=== PATIENT | female | born 1950 | race Caucasian/White ===

== ENCOUNTER 2017-02-06 21:54 | Emergency (ER) | payer MEDICARE ==
[2017-02-06 22:02] VITALS: BP 136/68; PULSE 53; RESP 16; TEMP 97.2
[2017-02-06] MEDS ORDERED: IBUPROFEN 800 MG TAB PO STA (22:03)
--- NOTE | 2017-02-06 22:06 | ED ---
Fall HPI - General Chief Complaint: Fall Stated Complaint: Fall Time Seen by Provider: 02/06/17 21:55 Source: patient, EMS, RN notes reviewed Mode of arrival: EMS - History of Present Illness Initial Comments: This is a 66-year-old female who states she slipped and tripped falling against a car hitting her left shoulder. Complains of left shoulder pain. No head neck or back pain. Pain is 89/10 in severity. She denies any lower extremity injuries. She denies any loss of consciousness or other complaints at this time. MD Complaint: fall - Related Data Allergies Allergy/AdvReac Type Severity Reaction Status Date / Time No Known Allergies Allergy Verified 02/06/17 22:46 Review of Systems ROS Statement: Those systems with pertinent positive or pertinent negative responses have been documented in the HPI. ROS Other: All systems not noted in ROS Statement are negative. Past Medical History Past Medical History: No Reported History History of Any Multi-Drug Resistant Organisms: None Reported Past Surgical History: No Surgical Hx Reported Past Psychological History: No Psychological Hx Reported Smoking Status: Never smoker Past Alcohol Use History: None Reported Past Drug Use History: None Reported General Exam - General Exam Comments Initial Comments: This is a well-developed well-nourished awake alert oriented history female she does demonstrate a Stryker Coma Scale of 15. Limitations: no limitations General appearance: alert, in no apparent distress Head exam: Present: atraumatic, normocephalic, normal inspection Eye exam: Present: normal appearance, PERRL, EOMI. Absent: scleral icterus, conjunctival injection, periorbital swelling ENT exam: Present: normal exam, mucous membranes moist Neck exam: Present: normal inspection. Absent: tenderness, meningismus, lymphadenopathy Respiratory exam: Present: normal lung sounds bilaterally. Absent: respiratory distress, wheezes, rales, rhonchi, stridor Cardiovascular Exam: Present: regular rate, normal rhythm, normal heart sounds. Absent: systolic murmur, diastolic murmur, rubs, gallop, clicks Extremities exam: Present: tenderness, normal capillary refill, other (Tennis palpation of the left shoulder no definite subluxation or step-off is tenderness of the proximal humerus some slight before meals joint tenderness. No scapular tenderness no tenderness below the mid humerus left elbow forearm wrist or hand.). Absent: full ROM Back exam: Present: normal inspection Neurological exam: Present: alert, oriented X3, CN II-XII intact Psychiatric exam: Present: normal affect Skin exam: Present: warm, dry, intact, normal color. Absent: rash Course Vital Signs 02/06/17 21:55 Temperature 97.2 F L Pulse Rate 53 L Respiratory 16 Rate Blood Pressure 136/68 O2 Sat by Pulse 97 Oximetry Medical Decision Making - Medical Decision Making I did discuss findings with the patient and with Dr. Jose was on-call for orthopedics. Patient be discharged sling structure ice she has pain medication at home and does not feel she is any other pain medication at this time she is a follow-up with the office tomorrow morning. She does have a good neurovascular exam. - Radiology Data Radiology results: report reviewed (I did review the imaging and report there is evidence of a displaced fracture the proximal humerus.), image reviewed Disposition Clinical Impression: Fall, Fracture of proximal end of left humerus Disposition: HOME SELF-CARE Condition: Good Instructions: Proximal Humerus Fracture (ED) Additional Instructions: Okay to use her home pain medication, ice as needed to the affected area follow- up in the morning with Dr. Jose. Referrals: Sahara Mojica MD [Primary Care Provider] - 1-2 days Yossi Jose DO [Doctor of Osteopathic Medicine] - 1-2 days
--- NOTE | 2017-02-06 22:39 | XR ---
ADDENDUM - Added by Hussain Erickson M.D. on 02/06/2017 10:41 PM (-07:00) Associated soft tissue swelling. EXAM: XR Left Shoulder Complete, 3 Views CLINICAL HISTORY: Reason: Pain TECHNIQUE: Three views of the left shoulder. COMPARISON: No relevant prior studies available. FINDINGS: Bones/joints: Comminuted left humeral neck fracture with fracture of the greater tuberosity. Medial and minimal anterior displacement. Soft tissues: Unremarkable. IMPRESSION: Comminuted left humeral neck fracture with fracture of the greater tuberosity. Medial and minimal anterior displacement.
--- NOTE | 2017-02-06 22:40 | XR ---
EXAM: XR Left Humerus, 2 or More Views CLINICAL HISTORY: Reason: Pain TECHNIQUE: Frontal and lateral views of the left humerus. COMPARISON: No relevant prior studies available. FINDINGS: Bones/joints: Comminuted left humeral neck fracture with fracture of the greater tuberosity. Medial and minimal anterior displacement. Soft tissues: Associated soft tissue swelling. IMPRESSION: Comminuted left humeral neck fracture with fracture of the greater tuberosity. Medial and minimal anterior displacement.
== END 2017-02-06 23:22 | disposition home or self-care (01) ==
LOC: EC 21:54
DX: S42.202A Unspecified fracture of upper end of left humerus, initial encounter for closed fracture (principal); W01.198A Fall on same level from slipping, tripping and stumbling with subsequent striking against other object, initial encounter; Y92.009 Unspecified place in unspecified non-institutional (private) residence as the place of occurrence of the external cause
CPT/HCPCS: 99284

== ENCOUNTER → 2017-07-09 | Outpatient (CLI) | payer MEDICARE ==
--- NOTE | 2017-07-09 13:32 | BD ---
EXAMINATION TYPE: MG DEXA axial skeleton. DATE OF EXAM: 07/09/2017 COMPARISON: 08/09/2010 CLINICAL HISTORY: 66-year-old female postmenopausal screening Height: 64 IN Weight: 215 LBS FRAX RISK QUESTIONS: Alcohol (3 or more units per day): NO Family History (Parent hip fracture): NO Glucocorticoids (More than 3mos): NO (Ex: prednisone, prednisolone, methylprednisolone, dexamethasone, and hydrocortisone). History of Fracture in Adulthood: YES LT HUMERUS FX Secondary Osteoporosis: 1. Type 1 Diabetes: NO 2. Hyperthyroidism: NO 3. Menopause before 45: NO 4. Malnutrition: NO 5. Chronic liver disease: NO Rheumatoid Arthritis: YES Current Tobacco Use: NO RISK FACTORS HISTORY OF: History of Wrist Fracture: YES RT When: AGE 2 Active: YES Postmenopausal woman: AGE 48 MEDICATIONS: Additional Medications: CALCIUM, VIT D, LISINOPRIL, GLUCOTROL, METFORMIN, LEXAPRO,BABY ASPIRIN, EXAM MEASUREMENTS: Bone mineral densitometry was performed using the Hublished System. Bone mineral density as measured about the Lumbar spine is: ----- L1-L4(G/cm2): 1.378 T Score Values are as follows: ----- L2: 1.9 ----- L3: 2.6 ----- L4: 1.5 ----- L1-L4: 1.6 Bone mineral density has: Increased 4.1% since study of: 08/09/2010 Bone mineral density about the R hip (g/cm2): 1.084 Bone mineral density about the L hip (g/cm2): 1.028 T Score values are as follows: -----R Neck: 0.3 -----L Neck: -0.1 -----R Total: 1.3 -----L Total: 0.5 Bone mineral density has: Decreased -2.3% since study of: 08/09/2010 IMPRESSION: Normal (Values between +1 and -1 indicate normal bone mass). Consider repeating this study in 5 year s or sooner if there is some new clinical indication. NOTE: T-SCORE=SD OF THE YOUNG ADULT MEAN.
== END | disposition home or self-care (01) ==
LOC: RADBDWWP 09:46
PROVIDERS: ATTEND Internal Medicine
DX: N95.1 Menopausal and female climacteric states (principal)
CPT/HCPCS: 77080

== ENCOUNTER → 2018-09-03 | Outpatient (CLI) | payer MEDICARE ==
--- NOTE | 2018-09-03 13:42 | XR ---
EXAMINATION TYPE: XR chest 2V DATE OF EXAM: 09/03/2018 COMPARISON: NONE TECHNIQUE: PA and lateral views submitted. HISTORY: Follow-up pneumonia FINDINGS: The lungs are clear and there is no pneumothorax, pleural effusion, or focal pneumonia. Mild promine nce of the left hilum. Hypertrophic and degenerative change of the spine. Chronic deformity of the le ft humerus noted. IMPRESSION: 1. No diagnostic evidence of pneumonia, however, there is asymmetric prominence of the left hilum for which CT scan of the chest is suggested.
== END | disposition home or self-care (01) ==
LOC: RADXRMAIN 13:01
PROVIDERS: ATTEND Internal Medicine
DX: R91.8 Other nonspecific abnormal finding of lung field (principal)
CPT/HCPCS: 71046

== ENCOUNTER → 2018-09-12 | Outpatient (CLI) | payer MEDICARE ==
--- NOTE | 2018-09-12 08:51 | CT ---
EXAMINATION TYPE: CT chest wo con DATE OF EXAM: 09/12/2018 COMPARISON: Chest x-ray 09/03/2018 HISTORY: Abnormal CXR CT DLP: 402.2 mGycm, Automated exposure control for dose reduction was used. CONTRAST: Performed injected with 0 mL of Isovue 300. TECHNIQUE: Axial images were obtained at 5 mm thick sections. Reconstructed images are reviewed on Split computer in the coronal plane. FINDINGS: Portion of the thyroid visualized is normal. There is a 0.6 cm density within the posterior lateral right upper lobe. Series 4 image 19. A punctat e 0.2 cm nodule may be within the anterior right midlung. Series 4 image 23. A faint 0.3 cm density i s within the mid left lung. Series 4 image 29. There is a 0.5 cm opacity in the anterior right middle lobe. Series 4 image 31. 0.6 cm density is adjacent to the mediastinal border within the lingula. Se tiffani 4 image 33. There is a 0.8 cm density within the lingula near the base which appears to contain a central calcification. This is likely calcified granuloma. Monitoring is recommended. Series 4 imag e 37. There is a 0.5 cm nodule in the periphery of the posterior lateral left lung. Series 4 image 46 . No enlarged mediastinal or hilar adenopathy is evident. The ascending aorta diameter at the level o f the main pulmonary artery is 3.8 cm. The main pulmonary artery diameter at the bifurcation is 3.3 cm. Mild coronary artery calcification is present. Limited CT sections are obtained through the upper abdomen. Cholelithiasis is present. 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 A peripelvic cy st or medial cortical renal cyst on the mid right kidney measuring 5.9 cm and 8 Hounsfield units is p resent. Comparison is made with the chest x-ray of 09/03/2018. Abnormality to account for the left hilar promi nence is not evident. Vascular calcification is noted within the aorta. IMPRESSIONS: 1. Multiple bilateral nodules. The largest within the lingula is likely a granuloma. Others may be of other etiologies. Follow-up is recommended. 2. Cholelithiasis.
== END | disposition home or self-care (01) ==
LOC: RADCTMAIN 07:16
PROVIDERS: ATTEND Internal Medicine
DX: R91.8 Other nonspecific abnormal finding of lung field (principal)
CPT/HCPCS: 71250

== ENCOUNTER → 2019-02-25 | Outpatient (CLI) | payer MEDICARE ==
--- NOTE | 2019-02-25 17:40 | US ---
EXAMINATION TYPE: US venous doppler duplex LE LT DATE OF EXAM: 02/25/2019 5:19 PM COMPARISON: None CLINICAL HISTORY: M79.662 Pain in left leg. Left leg pain. No swelling or redness. No hx of DVT. No blood thinners. SIDE PERFORMED: Left TECHNIQUE: The lower extremity deep venous system is examined utilizing real time linear array sonog hui with graded compression, doppler sonography and color-flow sonography. VESSELS IMAGED: External Iliac Vein (EIV) Common Femoral Vein Deep Femoral Vein Greater Saphenous Vein * Femoral Vein Popliteal Vein Small Saphenous Vein * Proximal Calf Veins (* superficial vessels) FINDINGS: Grayscale, color doppler, spectral doppler imaging performed of the deep veins of the lower extremities. There is normal flow, compressibility, vascular waveforms. IMPRESSION: 1. Negative for DVT, left lower extremity. 2. Popliteal fluid collection measuring 5.1 x 2.7 x 1.0 cm, consistent with Arvizu cyst.
== END | disposition home or self-care (01) ==
LOC: RADUSWWP 16:50
PROVIDERS: ATTEND Internal Medicine
DX: R93.7 Abnormal findings on diagnostic imaging of other parts of musculoskeletal system (principal); M79.662 Pain in left lower leg

== ENCOUNTER → 2019-11-06 | Outpatient (CLI) | payer MEDICARE ==
--- NOTE | 2019-11-07 16:41 | MM ---
Reason for exam: screening (asymptomatic). Last mammogram was performed 3 years and 4 months ago. History: Patient is postmenopausal. Family history of breast cancer in mother. Physical Findings: A clinical breast exam by your physician is recommended on an annual basis and results should be correlated with mammographic findings. MG 3D Screening Mammo W/Cad Bilateral CC and MLO view(s) were taken. Prior study comparison: June 26, 2016, bilateral MG 3d screening mammo w/cad. October 24, 2011, bilateral digital screening mammo w/CAD. The breast tissue is almost entirely fat. No significant changes when compared with prior studies. ASSESSMENT: Benign, BI-RAD 2 RECOMMENDATION: Routine screening mammogram of both breasts in 1 year.
== END | disposition home or self-care (01) ==
LOC: RADMAMWWP 14:01
PROVIDERS: ATTEND Internal Medicine
DX: Z12.31 Encounter for screening mammogram for malignant neoplasm of breast (principal)
CPT/HCPCS: 77063; 77067

== ENCOUNTER 2019-11-28 06:19 | Day surgery (SDC) | payer MEDICARE ==
[2019-11-25 12:04] VITALS: BMI 35.2
[2019-11-28] MEDS ORDERED: SODIUM CHLORIDE 0.9% 1,000 ML in EMPTY BAG 1 BAG IV ONE (06:23)
[2019-11-28] MEDS ORDERED: NITROGLYCERIN SL TABS 0.4 MG TAB SUBLINGUAL PRN (06:23)
[2019-11-28] MEDS ORDERED: ASPIRIN 325 MG TAB PO STA (06:23)
[2019-11-28] MEDS ORDERED: ALPRAZolam 0.5 MG TAB PO PRN (06:23)
[2019-11-28] MEDS ORDERED: ATORVASTATIN 80 MG TAB PO STA (06:23)
[2019-11-28] MEDS ORDERED: ALPRAZolam 0.25 MG TAB PO PRN (06:23)
[2019-11-28 06:58] LABS: Glucose,Whole Blood 177 mg/dL (75-99)
[2019-11-28 07:01] VITALS: RESP 16; TEMP 98.3
[2019-11-28] MEDS ORDERED: SODIUM CHLORIDE 0.9% 1,000 ML IV ONE (07:03)
[2019-11-28 07:13] LABS: Basophils % (A) 1 %; Eosinophils # (A) 0.2 k/uL (0-0.7); Eosinophils % (A) 4 %; HCT 37.5 % (34.0-46.0); HGB 12.3 gm/dL (11.4-16.0); Lymphocytes # (A) 1.1 k/uL (1.0-4.8); Lymphocytes % (A) 19 %; MCH 31.1 pg (25.0-35.0); MCHC 32.9 g/dL (31.0-37.0); MCV 94.6 fL (80.0-100.0); Mean Platelet Volume 7.2; Monocytes # (A) 0.4 k/uL (0-1.0); Monocytes % (A) 6 %; Neutrophils % (A) 67 %; Platelet Count 234 k/uL (150-450); RBC 3.96 m/uL (3.80-5.40); RDW 12.7 % (11.5-15.5)
[2019-11-28 07:18] LABS: Calcium 9.7 mg/dL (8.4-10.2); Potassium 4.4 mmol/L (3.5-5.1)
[2019-11-28] MEDS ORDERED: LIDOCAINE 1% INJ 10MG/ML (20 ML MDV) ONE (07:25)
[2019-11-28] MEDS ORDERED: VERAPAMIL 2.5 MG/ML 2 ML AMP ONE (07:25)
[2019-11-28] MEDS ORDERED: fentaNYL (PF) 50 MCG/ML 2 ML AMP ONE (07:25)
[2019-11-28] MEDS ORDERED: HEPARIN SODIUM 1,000 UN/ML (10ML VL) ONE (07:26)
[2019-11-28] MEDS ORDERED: fentaNYL (PF) 50 MCG/ML 2 ML AMP IV ONE (07:36)
[2019-11-28] MEDS ORDERED: MIDAZOLAM 2 MG/2 ML VIAL IV ONE (07:41)
[2019-11-28] MEDS ORDERED: LIDOCAINE 1% INJ 10MG/ML (20 ML MDV) SQ ONE (07:41)
[2019-11-28] MEDS ORDERED: VERAPAMIL SYRINGE (5 MG/10 ML) INTRAARTER ONE (07:42)
[2019-11-28] MEDS ORDERED: IOPAMIDOL-370 125ML BTL INJ ONE (07:52)
[2019-11-28] MEDS ORDERED: RX INFO: IV CONTRAST WAS GIVEN 1 EACH MISC MISCELLANE PRN (08:02)
[2019-11-28] MEDS ORDERED: SUMAtriptan SUCCINATE 50 MG TAB PO PRN (08:03)
[2019-11-28] MEDS ORDERED: CYCLOBENZAPRINE 10 MG TAB PO PRN (08:03)
[2019-11-28] MEDS ORDERED: SODIUM CHLORIDE 0.9% 1,000 ML IV SCH (08:15)
--- NOTE | 2019-11-28 08:15 | CC ---
CARDIAC CATHETERIZATION REPORT Mrs. Dolan is a 69-year-old female with known history of hypertension, hyperlipidemia and diabetes mellitus, who has been complaining of episode of chest discomfort. She underwent a myocardial perfusion imaging that revealed evidence of inducible ischemia. In view of that, recommendation was made regarding cardiac catheterization. The procedure as well as the risks and the complications were discussed with the patient who is in full understanding and agreement. PROCEDURE: Patient was brought to laboratory monitor in a fasting semi-sedated state after receiving fentanyl and Benadryl and achieving moderate conscious sedated state. Using Xylocaine anesthesia in the Seldinger technique, 6-Burundian sheath was introduced in the right radial artery. Selective right and left coronary angiography performed using 5-Burundian 3.5 bend right and left Karine catheter. Multiple views of the coronary artery including hemiaxial views obtained. Following that, 5-Burundian tight pigtail catheter was introduced in the left ventricle and pressures were calculated. Following that, catheter and sheath were removed. Hemostasis was obtained with deployment of a TR band. There was no immediate complication. Patient was returned to her room in stable condition. Of note, the patient received 5000 units of intravenous heparin as well as intra-arterial verapamil. FINDINGS: LEFT MAIN: This is a large-sized vessel trifurcating left circumflex, ramus intermedius and left anterior descending artery. The left main coronary artery has no evidence of high-grade stenosis. LEFT ANTERIOR DESCENDING ARTERY: This is a large-sized vessel, tortuous throughout its course, giving rise to a moderately sized diagonal branch in mid segment. The left anterior descending artery as well as branches have no evidence of obstructive coronary artery disease. RAMUS INTERMEDIUS: This is a large-sized vessel, tortuous, reaching to the apical lateral wall. The ramus intermedius has no evidence of high-grade stenosis. LEFT CIRCUMFLEX: This is a nondominant vessel giving rise to a moderately sized obtuse marginal branch. The left circumflex and its branches have no evidence of obstructive coronary artery disease RIGHT CORONARY ARTERY: This is a large dominant vessel bifurcating distally to PDA and posterolateral segment and branches. The right coronary artery proximally has a 20% plaque. The rest of the vessel has no high-grade stenosis. LEFT VENTRICULOGRAM: Left ventriculogram was not performed. HEMODYNAMICS: There was no gradient across the aortic valve. The left ventricular end-diastolic pressure was 8 to 10 mmHg. CONCLUSION: 1. Mild plaque in the proximal right coronary artery. 2. Right dominant vessel. RECOMMENDATION: In view of findings and anatomy, I recommend continued medical therapy with aggressive coronary risk modifications that have been initiated. Those findings and recommendation were discussed with the patient and her family and they are in full understanding and agreement. Duration of procedure is 12 minutes. MMODL / IJN: [id number] /
--- NOTE | 2019-11-28 08:21 | LTR ---
November 28, 2019 Re: Alanna Dolan Dear Dr. Mojica: I had the opportunity to perform cardiac catheterization on Alanna Dolan at [facility] on the 28 of November and a full copy of the procedure note will be forwarded to you. In brief, she was found to have mild plaque in the proximal right coronary artery with no other evidence of high-grade stenosis and based on those findings, I recommend continued medical therapy with aggressive coronary risk modifications that have been initiated. I thank you again for allowing me the opportunity to participate in her care. Please feel free to call for any questions. Sincerely yours, MD DASHA YunL / ENRIQUEN: [id number] /
[2019-11-28] MEDS ORDERED: LISINOPRIL 5 MG TAB PO STA (12:20)
[2019-11-28 13:14] VITALS: PULSE 59
[2019-11-28 13:53] VITALS: BP 162/70
[2019-11-28] MEDS ORDERED: ATORVASTATIN 20 MG TAB PO SCH (21:00)
[2019-11-28] MEDS ORDERED: CALCIUM CARBONATE 500 MG CHEWABLE PO SCH (21:00)
[2019-11-28] MEDS ORDERED: LISINOPRIL 5 MG TAB PO SCH (21:00)
[2019-11-28] MEDS ORDERED: glipiZIDE 5 MG TAB PO SCH (21:00)
[2019-11-29] MEDS ORDERED: ASPIRIN 81 MG PO SCH (09:00)
[2019-11-29] MEDS ORDERED: ESCITALOPRAM 20 MG TAB PO SCH (09:00)
[2019-11-29] MEDS ORDERED: MULTIVITAMINS, THERA 1 EACH TAB PO SCH (09:00)
== END 2019-11-28 13:34 | disposition home or self-care (01) ==
LOC: CATHCVL 06:19
PROVIDERS: ATTEND Internal Medicine Interventional Cardiology
DX: I25.10 Atherosclerotic heart disease of native coronary artery without angina pectoris (principal); I77.1 Stricture of artery; I10 Essential (primary) hypertension; E11.9 Type 2 diabetes mellitus without complications; E78.00 Pure hypercholesterolemia, unspecified; E78.2 Mixed hyperlipidemia; Z79.84 Long term (current) use of oral hypoglycemic drugs; Z79.899 Other long term (current) drug therapy; Z79.82 Long term (current) use of aspirin; Z82.49 Family history of ischemic heart disease and other diseases of the circulatory system
CPT/HCPCS: 93458; 80048; 85025; C1769; C1894; J2250; J2001; J3010; J1644; Q9967

== ENCOUNTER → 2021-06-03 | Outpatient (CLI) | payer MEDICARE ==
--- NOTE | 2021-06-03 13:53 | XR ---
EXAMINATION TYPE: XR chest 2V DATE OF EXAM: 06/03/2021 COMPARISON: This x-ray 09/03/2018, 11/05/2020 HISTORY: Cough TECHNIQUE: Frontal and lateral views of the chest are obtained. FINDINGS: There is no focal air space opacity, pleural effusion, or pneumothorax seen. The cardiac silhouette size is within normal limits. The osseous structures are stable, deformities again noted in the proximal left humerus. IMPRESSION: No acute cardiopulmonary process.
== END | disposition home or self-care (01) ==
LOC: RADXRMAIN 12:50
PROVIDERS: ATTEND Internal Medicine
DX: R05 Cough (principal)
CPT/HCPCS: 71046

== ENCOUNTER → 2021-12-15 | Outpatient (CLI) | payer MEDICARE ==
--- NOTE | 2021-12-20 12:17 | MM ---
Reason for exam: screening (asymptomatic). Last mammogram was performed 2 years and 1 month ago. History: Patient is postmenopausal. Family history of breast cancer in mother. Physical Findings: A clinical breast exam by your physician is recommended on an annual basis and results should be correlated with mammographic findings. MG 3D Screening Mammo W/Cad Bilateral CC and MLO view(s) were taken. XCCL view(s) were taken of the left breast. Prior study comparison: November 06, 2019, bilateral MG 3d screening mammo w/cad. June 26, 2016, bilateral MG 3d screening mammo w/cad. There are scattered fibroglandular densities. No significant changes when compared with prior studies. ASSESSMENT: Negative, BI-RAD 1 RECOMMENDATION: Routine screening mammogram of both breasts in 1 year.
== END | disposition home or self-care (01) ==
LOC: RADMAMWWP 13:48
PROVIDERS: ATTEND Internal Medicine
DX: Z12.31 Encounter for screening mammogram for malignant neoplasm of breast (principal); Z80.3 Family history of malignant neoplasm of breast; Z78.0 Asymptomatic menopausal state
CPT/HCPCS: 77063; 77067